=== PATIENT | female | born 1990 | race Caucasian/White ===

== ENCOUNTER 2017-03-08 14:22 | Emergency (ER) | payer OTHER ==
[~2017-03-08] VITALS: Ht 160 cm; Wt 71.5 kg
[~2017-03-08 14:22] MED LIST: PREN1TAB79 PO
[2017-03-08 14:37] VITALS: Ht 160 cm; Wt 71.5 kg
[2017-03-08 16:25] LABS: URINE BLOOD (Dip) POC Negative (NEGATIVE)
--- NOTE | 2017-03-08 16:58 | ERD ---
ER Documentation Chief Complaint Date/Time DATE: 03/08/17 TIME: 16:56 Chief Complaint PT REFERRED HERE FROM PMD, TUBES TIED, NO PERIOD SINCE JANUARY 29 LMP HPI Patient is a 26-year-old female who presents to the ED with a referral from her primary care for test and pelvic ultrasound. Patient states that she has not had her period since 01/26/17. She denies vaginal bleeding but complains of mild bilateral pelvic pain. Denies vaginal bleeding or abnormal vaginal discharge. Denies abdominal pain, nausea, vomiting or diarrhea. States that she had a tubal ligation. She states that she is currently sexually active and does not use protection in a monogamous relationship. Denies headache or dizziness. No other complaints. Denies fever or chills. Denies dysuria urgency. ROS All systems reviewed and are negative except as per history of present illness. Medications Home Meds Active Scripts Nitrofurantoin Monohyd Macrocr* (Macrobid*) 100 Mg Capsr, 100 MG PO BID for 7 Days, CAP Prov:LESTER CABRERA PA-C 03/08/17 Reported Medications Vit W-Ca,Fe,FA(<1 mg) ( Vitamins) 1 Each Tablet, 1 EACH PO DAILY, TAB 02/26/16 Allergies Allergies: Coded Allergies: No Known Allergy (Unverified , 03/09/16) PMhx/Soc History of Surgery: Yes ( X3) Anesthesia Reaction: No Hx Neurological Disorder: No Hx Respiratory Disorders: No Hx Cardiac Disorders: No Hx Psychiatric Problems: No Hx Miscellaneous Medical Probl: No Hx Alcohol Use: No Hx Substance Use: No Hx Tobacco Use: No Physical Exam Vitals Vital Signs Date Time Temp Pulse Resp B/P Pulse Ox O2 Delivery O2 Flow Rate FiO2 03/08/17 14:37 98.1 96 18 115/67 99 Physical Exam GENERAL: Well-developed, well-nourished female. Appears in no acute distress. HEAD: Normocephalic, atraumatic. EYES: Pupils are equally reactive bilaterally. EOMs grossly intact. No conjunctival erythema. ENT: Moist mucous membranes. No uvula deviation. No kissing tonsils. No exudates. NECK: Supple. No lymphadenopathy or thyromegaly. No meningismus. negative kernig. negative brudinski. LUNG: Clear to auscultation bilaterally. No rhonchi, wheezing, rales or coarse breath sounds. HEART: Regular rate and rhythm. No murmurs, rubs or gallops. ABDOMEN: No scars, ecchymosis or rashes noted. Soft, nontender, and nondistended. Positive bowel sounds in all four quadrants. No rebound tenderness , no guarding. (-) McBurneys point tenderness. No CVA tenderness. BACK: No midline tenderness. Extremities: Equal pulses bilaterally. No peripheral clubbing, cyanosis or edema. No unilateral leg swelling. NEUROLOGIC: Alert and oriented. Moving all four extremities. 5/5 strength in all extremities. Normal speech. Steady gait. SKIN: Normal color. Warm and dry. No rashes or lesions. Capillary refill < 2 seconds Result Diagram: 03/08/17 1650 Results 24 hrs Laboratory Tests Test 03/08/17 16:25 03/08/17 16:50 Bedside Urine pH (LAB) 5.0 Bedside Urine Protein (LAB) Negative Bedside Urine Glucose (UA) Negative Bedside Urine Ketones (LAB) Negative Bedside Urine Blood Negative Bedside Urine Nitrite (LAB) Negative Bedside Urine Leukocyte Esterase (L 1+ White Blood Count 7.710^3/ul Red Blood Count 4.7210^6/ul Hemoglobin 11.1g/dl Hematocrit 36.4% Mean Corpuscular Volume 77.1fl Mean Corpuscular Hemoglobin 23.5pg Mean Corpuscular Hemoglobin Concent 30.5g/dl Red Cell Distribution Width 16.0% Platelet Count 22564^3/UL Mean Platelet Volume 11.1fl Neutrophils % 50.6% Lymphocytes % 33.5% Monocytes % 9.3% Eosinophils % 5.5% Basophils % 0.8% Nucleated Red Blood Cells % 0.0/100WBC Neutrophils # 3.910^3/ul Lymphocytes # 2.610^3/ul Monocytes # 0.710^3/ul Eosinophils # 0.410^3/ul Basophils # 0.110^3/ul Nucleated Red Blood Cells # 0.010^3/ul Procedures/MDM ER COURSE: I kept the patient and/or family informed of laboratory and diagnostic imaging results throughout the emergency room course. EKG, MONITORS, & DIAGNOSTIC IMAGING: [place] [id number] Radiology Main Line: [phone] DIAGNOSTIC IMAGING REPORT Patient: ISABEL ALMODOVAR : 1990 Age: 26 Sex: F MR #: [id number] DOS: 03/08/17 0000 Ordering MD: LESTER CABRERA PA-C Location: [facility] Room/Bed: PROCEDURE: US Pelvis. CLINICAL INDICATION: Pelvic pain. TECHNIQUE: Multiple sonographic images of the pelvis were obtained utilizing a transabdominal and endovaginal technique. The images were reviewed on a PACS workstation. COMPARISON: Pelvic ultrasound from 04/22/2015. FINDINGS: The uterus is visualized and measures 9.3 x 5.8 x 5.1 cm. The endometrial echo complex is normal and measures 5.2 mm. There is no evidence for free fluid. The right ovary has a normal echotexture and measures 3.1 x 2.1 x 2.4 cm. The left ovary has a normal echotexture and measures 2.1 x 1.5 x 1.7 cm. No adnexal masses are noted. IMPRESSION: 1. Unremarkable pelvic ultrasound. RPTAT: [facility] Physician Harsha Date Time Electronically viewed and signed by Physician Harsha on 03/08/2017 17: 00 JH/ CC: LESTER CABRERA PA-C LAB INTERPRETATION: CBC showed no evidence of systemic infection or severe anemia. . UA showed no evidence of nitires or hematuria. 1+ leukocytes Urine test was negative. MEDICAL DECISION MAKING: This is a 26-year-old female who presents with pelvic pain, test and ultrasound. Vital signs were reviewed. Patient is afebrile. Patient is not hypoxic. Patient is nontoxic or ill-appearing. Her test was negative. Patient likely has cystitis. Her pelvic ultrasound is read by radiologist is unremarkable. Low suspicion for ovarian torsion, PID, tuboovarian abscess, ectopic , bowel obstruction, pyelonephritis, UTI, appendicitis, cervicitis, septic , molar , HELLP syndrome, preeclampsia, eclampsia, placenta previa, placenta abruptia, std,. DISCHARGE: At this time, patient is stable for discharge and outpatient management with no new complaints during the ER course. Patient was sent home with Macrobid and a copy of her imaging and laboratory studies to follow-up with her compliance tester.. Patient will be discharged home with instructions to recheck for new or worsening symptoms such as fever, nausea, weakness, LOC and to follow up with primary care in the next 1-2 days. Patient was advised to return to the ER for any new or worsening symptoms. Plan was discussed and patient and/or family understands and agrees. Home instructions were given. Departure Diagnosis: Primary Impression: Irregular menstrual cycle Additional Impression: Cystitis Condition: Stable LESTER CABRERA PA-C Mar 08, 2017 16:58
[2017-03-08 17:06] LABS: ADD SCAN DIFF NO
[2017-03-08 17:07] LABS: BASOPHIL # 0.1 10^3/ul (0.0-0.1); BASOPHILS % 0.8 % (0.0-2.0); EOSINOPHILS # 0.4 10^3/ul (0.0-0.5); EOSINOPHILS % 5.5 % (0.0-7.0); HEMATOCRIT 36.4 % (37.0-47.0); HEMOGLOBIN 11.1 g/dl (12.0-16.0); LYMPHOCYTES # 2.6 10^3/ul (0.8-2.9); LYMPHOCYTES % 33.5 % (15.0-51.0); MEAN CORPUSCULAR HEMOGLOBIN 23.5 pg (29.0-33.0); MEAN CORPUSCULAR HGB CONC 30.5 g/dl (32.0-37.0); MEAN CORPUSCULAR VOLUME 77.1 fl (82.0-101.0); MEAN PLATELET VOLUME 11.1 fl (7.4-10.4); MONOCYTE # 0.7 10^3/ul (0.3-0.9); MONOCYTES % 9.3 % (0.0-11.0); NEUTROPHIL # 3.9 10^3/ul (1.6-7.5); NEUTROPHILS % 50.6 % (39.0-77.0); PLATELET COUNT 336 10^3/UL (140-415); RED BLOOD COUNT 4.72 10^6/ul (4.20-5.40); WHITE BLOOD COUNT 7.7 10^3/ul (4.8-10.8)
[2017-03-08] MEDS ORDERED: NITR-58 PO (17:13)
== END 2017-03-08 17:26 | disposition home or self-care (01) ==
LOC: FTE 14:22
DX: N92.6 Irregular menstruation, unspecified (principal); N30.90 Cystitis, unspecified without hematuria
CPT/HCPCS: 76830; 76856; 81003; 85025; Z7502